=== PATIENT | female | born 1985 | race Caucasian/White ===

== ENCOUNTER 2017-04-03 13:39 | Emergency (ER) | payer OTHER ==
[2017-04-03] MEDS ORDERED: KETOROLAC TROMETHAMINE 30 MG/1ML VIAL IVP ONE (13:56)
[2017-04-03] MEDS ORDERED: 0.9 % SODIUM CHLORIDE 1,000 ML IV SCH (14:00)
--- NOTE | 2017-04-03 14:02 | ED Physician Documentation ---
Female Urogenital Problems - HPI Chief Complaint: Abdominal Pain Additional Information: rt back and flankk kpain hx gu llithiasis-assoc pain nausea Onset: days ago (2) Severity: moderate Location of Pain: low back pain, flank pain Further Comments: yes (prev gu lith drinks xs soda) - Associated Symptoms Urinary Symptoms: frequent urination, discomfort w/ urination - ROS CONST: none GI/: nausea. denies: vomiting CVS/RESP: none EYES/ENT: none NEURO/PSYCH: anxiety MS/SKIN/LYMPH: none - PAST HX Past History: other (gu lith bipolar gerd hypothryoid ) Surgeries/Procedures: hysterectomy, cholecystectomy, other (stents) Allergies/Adverse Reactions: Allergies Allergy/AdvReac Type Severity Reaction Status Date / Time acetaminophen [From Tylenol] Allergy Verified 04/03/17 13:59 Sulfa (Sulfonamide Allergy Verified 04/03/17 13:59 Antibiotics) Home Medications: Ambulatory Orders Medication Instructions Recorded Ciprofloxacin HCl [Cipro] 500 mg PO BID #12 tablet 04/03/17 Lamotrigine [Lamictal] 25 mg PO BID 04/03/17 Levothyroxine Sodium [Unithroid] 88 mcg PO QDAY 04/03/17 Kiron Carbonate [Kiron 300 mg PO BID 04/03/17 Carbonate ER] Omeprazole [Prilosec] 20 mg PO QDAY 04/03/17 Ranitidine HCl 150 mg PO QDAY 04/03/17 - SOCIAL HX Smoking History: less than 1 pack/day Alcohol Use: none Drug Use: marijuana - FAMILY HX Family History: none - REVIEWED ASSESSMENTS Nursing Assessment Reviewed: Yes Vitals Reviewed: Yes ED Results Lab/Radiology - Radiology Radiology Impressions: ct rev no stonesw but there is suggestion of uti plus pt drinks xs soda and gatoraid. will tx w/ dc soda and gatoraid increase water and c=-gore juice - Orders Orders: ED Orders Category Date Time Status CBC/PLATELET/DIFF Routine Lab 04/03/17 Ordered CMP Routine Lab 04/03/17 Ordered URINALYSIS Routine Lab 04/03/17 Ordered 0.9 % Sodium Chloride [Normal Saline] 1,000 ml Med 04/03/17 14:00 Ordered IV Q10H Ketorolac Tromethamine [Toradol] Med 04/03/17 13:56 Discontinued 30 mg IVP NOW ONE Female Urogenital Problems - EXAM General Appearance: mild distress EENT: eye inspection normal Neck: nml inspection. No: lymphadenopathy Respiratory: no resp. distress, breath sounds nml CVS: reg rate & rhythm, heart sounds normal Abdomen: soft, non-tender, other (rt flank tendernesss) Back: CVA tenderness Skin: color nml, no rash, warm,dry. No: cyanosis, diaphoresis, pallor Extremities: non-tender, normal range of motion Neuro: oriented X3, motor nml, sensation nml, mood/affect nml Discharge Clincal Impression: uti, dehydration Prescriptions: Ciprofloxacin HCl [Cipro] 500 mg PO BID #12 tablet Referrals: Primary Doctor,No [Primary Care Provider] - 2 Days Comments: home inc water [id number] soda and gatoraid Condition: Good Disposition: 01 HOME, SELF-CARE Decision to Admit: NO Decision Time: 16:18
[2017-04-03 14:06] LABS: APPEARANCE,URINE Cloudy (CLEAR); COLOR,URINE Yellow (YELLOW); OCCULT BLOOD,URINE Trace-lysed (NEGATIVE); UROBILINOGEN URINE 0.2 Eu (0.2-1.0)
[2017-04-03 14:07] LABS: BASOPHILS % 0.5 (0.0-1.5); EOSINOPHILS % 2.7 % (0.0-6.8); MEAN CORPUSCULAR HEMOGLOBIN 31.3 pg (28.0-34.0); MEAN CORPUSCULAR VOLUME 95.2 fl (80.0-100.0); MONOCYTES % 3.4 % (0.0-11.0); NEUTROPHILS # 8.1 # k/uL (1.4-7.7)
[2017-04-03] MEDS ORDERED: 0.9 % SODIUM CHLORIDE 1,000 ML IV ONE (14:15)
[2017-04-03 14:18] LABS: eGFR (African) > 60; eGFR (Non-African) > 60
[2017-04-03] MEDS ORDERED: fentaNYL CITRATE/PF 100 MCG/ 2ML AMP IVP ONE (14:56)
[2017-04-03] MEDS ORDERED: fentaNYL CITRATE/PF 100 MCG/ 2ML AMP ONE (14:58)
[2017-04-03 16:27] VITALS: BP 124/69
--- NOTE | 2017-04-03 17:36 | Diagnostic Imaging Report ---
JAH COLON [facility] [address] [facility] [address] [place], [place]. [address] Report Submission Date: Apr 03, 2017 3:43:01 PM CDT Patient Study Name: MEGAN CHASE Date: Apr 03, 2017 3:22:01 PM CDT Modality Type: CT\SR Gender: F Description: CT ABD & PELVIS W/O CO : 85 Institution: [facility] Physician: JAH COLON Examination: CT Abdomen/pelvis History: Right flank discomfort Comparison exams: None available Technique: CT Abdomen/pelvis without contrast protocol. Findings: Liver, spleen, adrenal glands, kidneys, and pancreas are without irregularity given exam technique. Surgical clips gallbladder fossa. No suspicious calcifications involving the renal cortices bilaterally. Ureters are nondilated in their course through the abdomen and pelvis. No suspicious calcification. Bladder margins within normal limits. Abdominal aorta without aneurysm or peripheral atherosclerotic disease. Cardiac silhouette is not enlarged. No pericardial effusion. Bowel without contrast limiting evaluation. No evidence for acute mesenteric inflammation or free air. Stool throughout the large bowel limiting sensitivity. Appendix is visualized and is without inflammatory changes. Osseous structures are appropriate for age. Lung bases without infiltrate. Impression: No nephro/ureterolithiasis. No evidence for acute abdominal inflammatory process. Stool throughout the large bowel suggesting constipation. Electronically signed on Apr 03, 2017 3:43:01 PM CDT by: Dariusz GARZA
== END 2017-04-03 16:10 | disposition home or self-care (01) ==
LOC: ED 13:39
DX: E86.0 Dehydration (principal); N39.0 Urinary tract infection, site not specified
CPT/HCPCS: 74176; 80053; 81002; 85025; 87086; J1885; J3010; J7030; 96361; 96374; 96375; 99283; S1016

== ENCOUNTER 2017-04-04 20:22 | Emergency (ER) | payer OTHER ==
[2017-04-04] MEDS ORDERED: ORPHENADRINE CITRATE 60 MG/2ML IV ONE (20:31)
[2017-04-04] MEDS ORDERED: KETOROLAC TROMETHAMINE 30 MG/1ML VIAL IVP ONE (20:31)
[2017-04-04] MEDS ORDERED: ONDANSETRON HCL/PF 4 MG/ 2ML VIAL IVP ONE (20:32)
[2017-04-04] MEDS ORDERED: cefTRIAXone SODIUM ADVANTAGE 1 GM in NORMAL SALINE ADD-VANTAGE 50 ML IV ONE (20:33)
--- NOTE | 2017-04-04 20:42 | ED Physician Documentation ---
General Adult - HISTORIAN Historian: patient, other (old records) - HPI Stated Complaint: r flank pain Chief Complaint: General Adult Additional Information: Nausea, vomiting, right flank pain, urgency, frequency, mid low abdominal pain and pressure. Seen in this ER yesterday, dx'ed with UTI and given Cipro. Unable to keep any of Cipro down today 2/2 vomiting. Thinks she has a kidney stone. - ROS CONST: no problems - PAST HX Past History: other (kidn) Allergies/Adverse Reactions: Allergies Allergy/AdvReac Type Severity Reaction Status Date / Time acetaminophen [From Tylenol] Allergy Verified 04/04/17 21:25 Sulfa (Sulfonamide Allergy Verified 04/04/17 21:25 Antibiotics) paroxetine HCl [From Paxil] AdvReac Palpitation Verified 04/04/17 21:26 s Home Medications: Ambulatory Orders Medication Instructions Recorded Ciprofloxacin HCl [Cipro] 500 mg PO BID #12 tablet 04/03/17 [place] Carbonate [[place] 300 mg PO BID 04/03/17 Carbonate ER] Ranitidine HCl 300 mg PO BID 04/03/17 Albuterol Sulfate [ProAir 1 puff INH DAILY 04/04/17 RespiClick] Albuterol Sulfate [Proair HFA] 1 inh IH PRN PRN 04/04/17 Lamotrigine [Lamictal] 300 mg PO DAILY 04/04/17 Levothyroxine Sodium [Synthroid] 50 mcg PO DAILY 04/04/17 Omeprazole [Prilosec] 40 mg PO BID 04/04/17 - SOCIAL HX Smoking History: cigarettes (1 1/2 PPD) Drug Use: marijuana - FAMILY HX Family History: No - VITAL SIGNS Vital Signs: Vital Signs Temp Pulse Resp BP Pulse Ox 124/69 04/03/17 16:10 - REVIEWED ASSESSMENTS Nursing Assessment Reviewed: Yes Vitals Reviewed: Yes Progress - Progress Progress: I have reviewed the Abd & pelvis CT w/o from yesterday. There is no extrarenal matrix stone. UA results here show slight improvement in UTI. Will treat with IV fluids, IV Rocephin, then home. [id number], nurses report patient demanded script for Fentanyl yesterday. ED Results Lab/Radiology - Orders Orders: ED Orders Category Date Time Status Place IV Lock 1T Care 04/04/17 20:33 Active CBC/PLATELET/DIFF Routine Lab 04/04/17 Ordered CMP Routine Lab 04/04/17 Ordered UA [URINALYSIS] Routine Lab 04/04/17 Ordered Ketorolac Tromethamine [Toradol] Med 04/04/17 20:31 Discontinued 30 mg IVP NOW ONE Ondansetron HCl/Pf [Zofran 4 mg/2 ml] Med 04/04/17 20:32 Discontinued 4 mg IVP NOW ONE Orphenadrine Citrate [Norflex] Med 04/04/17 20:31 Discontinued 60 mg IV NOW ONE cefTRIAXone SODIUM ADVANTAGE [Rocephin Advantage] 1 gm Med 04/04/17 20:33 Active Normal Saline Add-[place]atte [Sodium Chloride] 50 ml IV NOW General Adult Physical Exam - PHYSICAL EXAM GENERAL APPEARANCE: mild distress EENT: eye inspection normal, ENT inspection normal, pharynx normal NECK: normal inspection, supple RESPIRATORY: no resp distress, breath sounds normal CVS: reg rate & rhythm, heart sounds normal, no murmur ABDOMEN: soft, normal bowel sounds, no distension RECTAL: deferred BACK: normal inspection, no CVA tenderness SKIN: warm/dry, normal color EXTREMITIES: no evidence of injury, no edema NEURO: CN's nml as tested, motor nml, sensation nml, cognition normal Discharge Clincal Impression: Drug-seeking behavior Urinary tract infection Qualifiers: Urinary tract infection type: acute cystitis Hematuria presence: without hematuria Qualified Code(s): N30.00 - Acute cystitis without hematuria Referrals: Primary Doctor,No [Primary Care Provider] - 2 Days Additional Instructions: No antibiotics until tomorrow. Then complete the Cipro as prescribed. Follow up with your provider as needed. Condition: Good Disposition: 01 HOME, SELF-CARE Decision to Admit: NO Decision Time: 21:40
[2017-04-04] MEDS ORDERED: cefTRIAXone SODIUM 1 GM VIAL ONE (20:49)
[2017-04-04] MEDS ORDERED: 0.9 % SODIUM CHLORIDE 50 ML IV ONE (20:50)
[2017-04-04] MEDS ORDERED: 0.9 % SODIUM CHLORIDE 1,000 ML IV ONE ×2 (20:54→21:04)
[2017-04-04 20:57] LABS: BASOPHILS % 0.4 (0.0-1.5); MEAN CORPUSCULAR HEMOGLOBIN 31.4 pg (28.0-34.0); MEAN CORPUSCULAR VOLUME 96.1 fl (80.0-100.0); MONOCYTES % 3.6 % (0.0-11.0); NEUTROPHILS # 8.3 # k/uL (1.4-7.7)
[2017-04-04 21:07] LABS: eGFR (African) > 60; eGFR (Non-African) > 60
[2017-04-04] MEDS ORDERED: BUTORPHANOL TARTRATE 2 MG/ML VIAL IV ONE (21:26)
[2017-04-04 22:05] VITALS: BP 131/88
[2017-04-05 06:03] LABS: APPEARANCE,URINE CLOUDY (CLEAR); COLOR,URINE YELLOW (YELLOW); OCCULT BLOOD,URINE NEGATIVE (NEGATIVE); PH URINE 6.5 (5.0 - 8.0); UROBILINOGEN URINE 0.2 Eu (0.2-1.0)
== END 2017-04-04 22:03 | disposition home or self-care (01) ==
LOC: ED 20:22
DX: N30.00 Acute cystitis without hematuria (principal); Z76.5 Malingerer [conscious simulation]
CPT/HCPCS: 80053; 81002; 85025; J0595; J0696; J1885; J2360; J2405; J7030; 87086; 96361; 96374; 96375; 99283; S1016